=== PATIENT | female | born 1950 | race Caucasian/White ===

== ENCOUNTER 2018-12-01 11:37 | Outpatient (CLI) | payer MEDICARE ==
[~2018-12-01 11:37] MED LIST: Iopamidol 370 76% 100 ML VIAL ONE
[2018-12-01 12:52] LABS: Estimated GFR-MDRD - POC Greater than 90
--- NOTE | 2018-12-01 13:23 | CT ---
CT abdomen with and without contrast CT pelvis with and without contrast: (CT urogram) 12/01/2018 HISTORY: 68-year-old female with microhematuria COMPARISON: None TECHNIQUE: Precontrast scan, nephrographic/venous phase scan, and pyelographic/excretory phase scan, of entire a bdomen and pelvis. FINDINGS: Laparoscopic gastric band around the gastric cardia. Spleen is significantly enlarged. Liver has nodular margins. Small amount of free fluid around the right lobe of the liver. Moderate splenic varices. No portal vein thrombosis. No pleural effusion. There are multiple bilateral renal calculi. Right: At least 2. The larger one is 9 x 7 mm at lower pole calyx. There is a smaller one at mid pole . Left: 15 x 10 mm calculus within the left renal pelvis. Fat stranding representing edema around the l eft renal pelvis. Multiple other calculi at left renal upper, mid, and lower poles. No dilation of the renal calyces bilaterally. No calculus or dilation of ureters. No calculus in blad mauricio. Normal, thin diaz of the urinary bladder. Pelvic relaxation. Bilateral nephrograms are symmetrical, with no evidence of pyelonephritis. No moderate sized or large renal cystic lesion or solid tumor identified. No abdominal aortic aneurysm. No small bowel dilation. Redundant colon, especially sigmoid colon. No free fluid within the dependent portion of pelvic cavity. There is a small amount of free fluid at the right pelvic inlet. No major pathology of pancreas and adrenals. IMPRESSION: 1. Cirrhosis, 2. Signs of portal venous hypertension: Splenomegaly and splenic varices. 3. Nephrolithiasis with multiple bilateral renal calculi, left greater than right. 4. Edema around the left renal pelvis surrounding a moderately large calculus within the left renal p debora. 5. No hydronephrosis. 6. Status post laparoscopic gastric band bariatric surgery
== END 2018-12-01 11:38 | disposition home or self-care (01) ==
LOC: BICCT 11:37
PROVIDERS: ATTEND Urology
DX: R31.29 Other microscopic hematuria (principal); K74.60 Unspecified cirrhosis of liver; I86.8 Varicose veins of other specified sites; R16.1 Splenomegaly, not elsewhere classified; R60.0 Localized edema; K76.6 Portal hypertension; N20.0 Calculus of kidney; Z98.890 Other specified postprocedural states
CPT/HCPCS: 74178; 82565; Q9967

== ENCOUNTER 2019-02-26 05:34 | Day surgery (SDC) | payer MEDICARE ==
[2019-02-18 08:29] VITALS: BMI 35.6
[2019-02-26] MEDS ORDERED: Fentanyl 100 MCG/2 ML VIAL ONE (06:47)
[2019-02-26] MEDS ORDERED: Iothalamate Meglumine 60% 50 ML VIAL FS ONE (06:51)
[2019-02-26] MEDS ORDERED: Levofloxacin 500 mg/D5W 100 ml Premix Bag ONE (06:59)
[2019-02-26] MEDS ORDERED: Hyoscyamine Sulfate SL 0.125 mg Tablet ONE (08:56)
[2019-02-26] MEDS ORDERED: Promethazine HCl 25 MG/ML VIAL ONE (10:12)
--- NOTE | 2019-02-26 12:43 | OP ---
DATE OF PROCEDURE: 02/26/2019 SERVICE: Urology. PREOPERATIVE DIAGNOSIS: Bilateral renal stones. POSTOPERATIVE DIAGNOSIS: Bilateral renal stones. PROCEDURES PERFORMED: Left ureteroscopy, laser lithotripsy, basket extraction of stones, and placement of a 6 x 24 double-J stent. INDICATIONS FOR PROCEDURE: Ms. Brownlee is a 69-year-old white female, who presented to pr for microhematuria workup. It was found that she had large bilateral stones. The worst stone burden is on the left. We elected to start on the left side as she is mildly symptomatic on this side. Risks and benefits of surgery were discussed, and she has agreed to proceed forward. DESCRIPTION OF PROCEDURE: After identification of armband and verification of consent, the patient was brought back to the operating room, where she underwent general anesthesia with endotracheal intubation. She was then placed in a dorsal lithotomy position, prepped and draped in usual sterile fashion. After appropriate time-out, a lubricated 22-Malian rigid cystoscope was introduced per urethra into the bladder and attention was turned to left ureteral orifice. This was cannulated with a 0.035 Sensor wire up to the level of the renal pelvis. The stone was radiopaque on fluoroscopy. The cystoscope was then removed, and a dual-lumen catheter was advanced over the Sensor wire up to the level of the proximal ureter. An Amplatz Super Stiff wire was then passed to the second lumen up to the level of renal pelvis. The dual-lumen was then removed, and an 11/13-Malian x 36 cm ureteral access sheath was advanced up the superstiff wire to the level of the UPJ. The inner cannula and the Super Stiff wire were then removed leaving the outer sheath in place and the Sensor wire in place as a safety wire. A flexible digital ureteroscope was then passed through the ureteral access sheath into the renal pelvis. The large renal pelvis stone was immediately apparent, measuring approximately 15 mm in longest dimension. A 273 micron ball-tip laser fiber was used to fragment the stone into small pieces. An additional large stone was found in the upper pole and a medium-size stone found in the lower pole of the kidney, which were also fragmented. The 1.9-Malian ZeroTip Nitinol basket was then used to remove all pieces that were over 1 to 2 mm in size. Upon completion, all fragments had been removed except those there were approximately about a millimeter maybe at the most 2 mm in long dimension. The vast majorities were able to be removed, but due to a significant amount of debris within the kidney at this point, it was difficult to see. As such, we opted to leave the remaining stones as they were extremely small and should pass without much difficulty. Pull-back ureteroscopy was employed. No additional stones were found within the ureter. The cystoscope was then backloaded over the Sensor wire back into the bladder, and a 6 x 24 double-J stent was advanced over the Sensor wire up into the kidney. The wire was then removed leaving a good curl in the kidney and the bladder. The bladder was then emptied. The cystoscope was removed. The patient was awakened, taken to PACU for recovery in stable condition. COMPLICATIONS: None. ESTIMATED BLOOD LOSS: Minimal. RETAINED TUBES AND DRAINS: 6 x 24 double-J stent on the left. SPECIMEN: Stone for stone analysis. DISPOSITION: The patient will be discharged home and follow up with me in approximately 1 week for cysto stent removal. We will then plan for ureteroscopy on the other side at a future date and consider metabolic workup in the interim. Job ID: [id number]
[2019-03-04 13:11] LABS: CA Oxalate Monohydrate 75 % (.); CA Phosphate 25 % (.); Color Brown (.); Comment Note: (.); Stone Weight 556.9 mg (.)
== END 2019-02-26 13:29 | disposition home or self-care (01) ==
LOC: SDC 05:34
PROVIDERS: ATTEND Urology
PROC: 0TF48ZZ Fragmentation in Left Kidney Pelvis, Via Natural or Artificial Opening Endoscopic (ICD-10-PCS; principal; 2019-02-26)
PROC: 0T778DZ Dilation of Left Ureter with Intraluminal Device, Via Natural or Artificial Opening Endoscopic (ICD-10-PCS; 2019-02-26)
DX: N20.0 Calculus of kidney (principal); M79.7 Fibromyalgia; I11.9 Hypertensive heart disease without heart failure; Z79.899 Other long term (current) drug therapy; Z88.1 Allergy status to other antibiotic agents; Z88.6 Allergy status to analgesic agent
CPT/HCPCS: 52356; 74420; 82365; 88300; C1769; J1956; J2550; J3010

== ENCOUNTER 2019-04-10 11:33 | Outpatient (CLI) | payer MEDICARE ==
[2019-04-10 12:38] LABS: Hemoglobin 13.2 g/dL (12.0-16.0); Mean Corpuscular HGB CONC 34.2 g/dL (32.0-36.0); Mean Corpuscular Hemoglobin 32.2 pg (27.0-31.0); Mean Platelet Volume 7.6 fL (7.4-10.4); Platelet Count 106 thou/uL (130-400); RBC Distribution Width 12.5 % (11.5-14.5); Red Blood Cell (RBC) Count 4.11 mill/uL (4.20-5.40); White Blood Cell (WBC) Count 4.5 thou/uL (4.8-10.8)
[2019-04-10 12:42] LABS: INR-International Normal Ratio 1.3; PTT 36.1 SEC (22.9-36.1); Prothrombin Time 15.8 SEC (12.0-14.7)
[2019-04-10 12:48] LABS: Bilirubin Negative (Negative); Blood, Urine Negative (Negative); Calcium Oxalate Crystals 4+ HPF (None Seen); Clarity Turbid (Clear); Glucose, Urine (Dipstick) Normal (Negative); Leukocyte Negative Leu/uL (Negative); Nitrite Negative (Negative); Protein, Urine (Dipstick) Negative (Neg-Trace); Squamous Epithelial 0-3 HPF (0-3)
[2019-04-10 12:49] LABS: Bacteria/HPF 1+ HPF (None Seen)
[2019-04-10 12:57] LABS: RBC/HPF None Seen HPF (0-3); WBC/HPF 0-3 HPF (0-3)
[2019-04-10 12:59] LABS: Anion Gap 11 mmol/L (10-20); BUN (Urea Nitrogen) 8 mg/dL (9.8-20.1); Calc. Creatinine Clearance 0 mL/min (70-130); Calcium 9.3 mg/dL (7.8-10.44); Carbon Dioxide 28 mmol/L (23-31); Chloride 103 mmol/L (98-107); Estimated GFR-MDRD 67; Glucose 91 mg/dL (83-110); Potassium 4.3 mmol/L (3.5-5.1); Sodium 138 mmol/L (136-145)
== END 2019-04-10 11:34 | disposition home or self-care (01) ==
LOC: LABBT 11:33
PROVIDERS: ATTEND Urology
DX: Z01.818 Encounter for other preprocedural examination (principal); N20.0 Calculus of kidney; R31.29 Other microscopic hematuria; N39.0 Urinary tract infection, site not specified
CPT/HCPCS: 80048; 81001; 85027; 85610; 85730; 87086; 93005; 93010

== ENCOUNTER 2019-04-16 06:57 | Day surgery (SDC) | payer MEDICARE ==
[2019-04-10 11:49] VITALS: BMI 35.3
[2019-04-16] MEDS ORDERED: Levofloxacin 500 mg/D5W 100 ml Premix Bag ONE (09:16)
[2019-04-16] MEDS ORDERED: B & O ONE (09:39)
[2019-04-16] MEDS ORDERED: Fentanyl 100 MCG/2 ML VIAL ONE (10:13)
--- NOTE | 2019-04-16 12:55 | OP ---
DATE OF PROCEDURE: 04/16/2019 SERVICE: Urology. PREOPERATIVE DIAGNOSIS: Right renal stone. POSTOPERATIVE DIAGNOSIS: Right renal stone. PROCEDURES PERFORMED: Right ureteroscopy, laser lithotripsy, basket extraction of stone, and placement of a 6 x 28 double-J stent. INDICATION FOR PROCEDURE: Ms. Brownlee is a 69-year-old white female, who had recurrent urinary tract infections and imaging demonstrating bilateral renal stones. She has already had a ureteroscopy and clearance of stone on the left side, but still has an approximately 9 x 7 stone on the right with an additional stone. We elected for ureteroscopy to remove the stones to try and lower her risk of urinary tract infections as well as clear her stone disease. Risks and benefits have been discussed and she has agreed to proceed forward. DESCRIPTION OF PROCEDURE: After identification of armband and verification of consent, the patient was brought back to the operating room, where she underwent general anesthesia with endotracheal intubation. She was then placed in dorsal lithotomy position and prepped and draped in usual sterile fashion. After appropriate time-out, a lubricated 22-Tamazight rigid cystoscope was introduced per urethra into the bladder. Of note, the patient does have approximately a grade 3 anterior prolapse. Attention was turned to the right ureteral orifice, which was cannulated with a 0.035 Sensor wire up to the level of renal pelvis. The stones were visible fluoroscopically. The cystoscope was removed and a dual-lumen catheter was advanced over the Sensor wire up to the level of proximal ureter. An Amplatz Super-Stiff wire was the and placed to the second lumen up to the level of the renal pelvis. The dual lumen was removed. An 11/13 x 36 cm ureteral access sheath was advanced up the Super-Stiff wire up to the level of the proximal ureter, and the inner cannula and Super-Stiff wire were removed leaving the outer sheath and Sensor wire in place as a safety wire. A flexible digital ureteroscope was then passed through the ureteral access sheath up to the level of renal pelvis. Full pyeloscopy demonstrated a large stone in the lower pole and a medium size stone in the middle pole. Using the 1.9-Tamazight Zero Tip Nitinol basket, the lower pole of stone was repositioned to the upper pole for easier fragmentation. The basket was then removed and a 273 micron ball-tip fiber was used to come in and break up both stones into small pieces. The Nitinol basket was then brought back in and all pieces greater than 1 mm were removed. Upon completion, there were no stone fragments over a millimeter in size. They all appeared extremely small and they should be able to pass on their own. Full pyeloscopy was performed and no additional stones were seen. Satisfied with fragmentation and near complete stone removal, pull-back ureteroscopy was employed, no additional stones were found within the ureter. The cystoscope was then backloaded over the Sensor wire back into the bladder and a 6 x 24 double-J stent was advanced over the Sensor wire up to the level of renal pelvis. The wire was removed leaving partial curl in the bladder and a poor curl in the kidney, indicating that the stent was probably too short. The stent was brought out to the level of the urethral meatus using flexible graspers and the Sensor wire was advanced through the ureteral stent up to the level of renal pelvis. The stent was then removed and discarded and a 6 x 28 double-J stent was brought in over the Sensor wire and advanced fluoroscopically into position with the wire removed, leaving a good curl in the kidney and a good curl in the bladder. Satisfied with the new stent, the bladder was drained and cystoscope removed. B and O suppositories placed in the patient's rectum. The patient was then awakened and taken to PACU for recovery in stable condition. COMPLICATIONS: None. ESTIMATED BLOOD LOSS: Minimal. RETAINED TUBES AND DRAINS: A 6 x 28 double-J stent on the right. SPECIMEN: Stone for stone analysis. DISPOSITION: The patient will be discharged home and follow up with me in 1 week for cysto stent removal. Job ID: [id number]
[2019-04-16] MEDS ORDERED: HYDROcodone/Acetaminophen 5/325 mg Tablet ONE (13:07)
== END 2019-04-16 13:50 | disposition home or self-care (01) ==
LOC: SDC 06:57
PROVIDERS: ATTEND Urology
PROC: 0TC08ZZ Extirpation of Matter from Right Kidney, Via Natural or Artificial Opening Endoscopic (ICD-10-PCS; principal; 2019-04-16)
PROC: 0T768DZ Dilation of Right Ureter with Intraluminal Device, Via Natural or Artificial Opening Endoscopic (ICD-10-PCS; 2019-04-16)
DX: N20.0 Calculus of kidney (principal); Z79.82 Long term (current) use of aspirin; Z79.891 Long term (current) use of opiate analgesic; Z79.899 Other long term (current) drug therapy; Z87.440 Personal history of urinary (tract) infections; Z88.1 Allergy status to other antibiotic agents; Z88.6 Allergy status to analgesic agent
CPT/HCPCS: 52356; 76000; 82365; 88300; C1769; J1956; J3010

== ENCOUNTER 2019-06-26 09:27 | Outpatient (CLI) | payer MEDICARE ==
--- NOTE | 2019-06-26 10:14 | ULT ---
Exam: Bilateral renal ultrasound HISTORY: Nephrolithiasis COMPARISON: None FINDINGS: Right kidney: Normal cortical echotexture. 0.8 cm echogenic focus in the right renal pelvis. Mild hyd ronephrosis. Right kidney measurements: 9.6 x 6.0 x 5 point cm. Left kidney: Normal cortical echotexture. No hydronephrosis Left kidney measurements 10.0 x 4.9 x 5.4 cm. Urinary bladder: Normal mucosa. IMPRESSION: 1. Mild hydronephrosis, right-sided. No significant change pre and post voiding. 2. Right renal pelvic calculus.
== END 2019-06-26 09:28 | disposition home or self-care (01) ==
LOC: BICULT 09:27
PROVIDERS: ATTEND Urology
DX: N20.0 Calculus of kidney (principal); N13.30 Unspecified hydronephrosis
CPT/HCPCS: 76770

== ENCOUNTER 2020-12-08 12:33 | Outpatient (CLI) | payer MEDICARE | END 2020-12-08 12:34 | disposition home or self-care (01) | LOC: BICCT 12:33 | PROVIDERS: ATTEND Urology | DX: R31.29 Other microscopic hematuria (principal); N13.2 Hydronephrosis with renal and ureteral calculous obstruction; K74.60 Unspecified cirrhosis of liver; R16.1 Splenomegaly, not elsewhere classified; I86.4 Gastric varices; M79.89 Other specified soft tissue disorders; R18.8 Other ascites | CPT/HCPCS: 74178; 82565 ==

== ENCOUNTER 2020-12-19 11:10 | Outpatient (CLI) | payer MEDICARE ==
[2020-12-19 14:48] LABS: Bilirubin 1+ (Negative); Blood, Urine 250 (Negative); Clarity Slightly Cloudy (Clear); Glucose, Urine (Dipstick) Normal (Negative); Ketone, Urine 5 mg/dL (Negative); Leukocyte 100 (Negative); Nitrite Positive (Negative); Protein, Urine (Dipstick) 100 mg/dl (Neg-Trace)
[2020-12-19 14:53] LABS: Hemoglobin 12.2 g/dL (12.0-15.5); Mean Corpuscular HGB CONC 33.1 g/dL (32.0-36.0); Mean Corpuscular Hemoglobin 31.2 pg (27.0-33.0); Mean Corpuscular Volume 94.4 fl (81.6-98.3); Mean Platelet Volume 10.7 fl (7.4-10.4); Platelet Count 137 10x3/uL (150-450); RBC Distribution Width 14.3 % (11.5-14.5); Red Blood Cell (RBC) Count 3.91 10x6/uL (3.90-5.03); White Blood Cell (WBC) Count 5.4 10x3/uL (3.5-10.5)
[2020-12-19 15:12] LABS: RBC/HPF 21-50 HPF (0-3); Squamous Epithelial 0-3 HPF (0-3); Transitional Epithelial 0-3 HPF (None Seen)
[2020-12-19 15:13] LABS: Bacteria/HPF Rare-Few HPF (None Seen); Mucous/LPF Few LPF (<2+)
[2020-12-19 15:15] LABS: Anion Gap 10 mmol/L (10-20); BUN (Urea Nitrogen) 8 mg/dL (9.8-20.1); Calc. Creatinine Clearance 0 mL/min (70-130); Calcium 8.4 mg/dL (7.8-10.44); Carbon Dioxide 33 mmol/L (23-31); Chloride 101 mmol/L (98-107); Glucose 97 mg/dL (83-110); INR-International Normal Ratio 1.2; PTT 31.1 sec (22.0-33.0); Potassium 3.4 mmol/L (3.5-5.1); Prothrombin Time 13.3 sec (9.5-12.1); Sodium 141 mmol/L (136-145)
== END 2020-12-19 11:11 | disposition home or self-care (01) ==
LOC: LABBT 11:10
PROVIDERS: ATTEND Urology
DX: Z01.818 Encounter for other preprocedural examination (principal)
CPT/HCPCS: 80048; 81001; 85027; 85610; 85730; 87086; 93005; 93010

== ENCOUNTER 2020-12-22 08:51 | Day surgery (SDC) | payer MEDICARE ==
[2020-12-21 12:12] VITALS: BMI 35.7
[2020-12-22] MEDS ORDERED: Levofloxacin 500 mg/D5W 100 ml Premix Bag ONE (09:12)
[2020-12-22] MEDS ORDERED: Iothalamate Meglumine 60% 50 ML VIAL FS ONE (11:24)
[2020-12-22] MEDS ORDERED: B & O ONE (11:24)
[2020-12-22] MEDS ORDERED: Fentanyl 100 MCG/2 ML VIAL ONE (11:31)
[2020-12-22] MEDS ORDERED: Famotidine/PF 20 mg/2ml Vial ONE (11:32)
[2020-12-22] MEDS ORDERED: PROPOFOL 200 MG/20 ML VIAL ONE (11:52)
[2020-12-22] MEDS ORDERED: Rocuronium Bromide 10 MG/ML (10ML VIAL) ONE (11:52)
[2020-12-22] MEDS ORDERED: Ondansetron PF 4 MG/2 ML Vial ONE (11:52)
[2020-12-22] MEDS ORDERED: Metoclopramide HCl 10 MG/2 ML VIAL ONE (11:52)
[2020-12-22] MEDS ORDERED: ePHEDrine Sulfate 50 MG/10 ML VIAL ONE (11:52)
[2020-12-22] MEDS ORDERED: PHENYLEPHRINE-NS 100 MCG/ML 10 ML SYRINGE ONE (11:52)
[2020-12-22] MEDS ORDERED: Lidocaine 1% PF 5 ML VIAL ONE (11:52)
[2020-12-22] MEDS ORDERED: SUGAMMADEX SODIUM 200 MG/2 ML VIAL ONE (13:47)
== END 2020-12-22 14:55 | disposition home or self-care (01) ==
LOC: SDC 08:51
PROVIDERS: ATTEND Urology
PROC: 0TC48ZZ Extirpation of Matter from Left Kidney Pelvis, Via Natural or Artificial Opening Endoscopic (ICD-10-PCS; principal; 2020-12-22)
PROC: 0TC68ZZ Extirpation of Matter from Right Ureter, Via Natural or Artificial Opening Endoscopic (ICD-10-PCS; 2020-12-22)
PROC: 0TC38ZZ Extirpation of Matter from Right Kidney Pelvis, Via Natural or Artificial Opening Endoscopic (ICD-10-PCS; 2020-12-22)
PROC: 0T768DZ Dilation of Right Ureter with Intraluminal Device, Via Natural or Artificial Opening Endoscopic (ICD-10-PCS; 2020-12-22)
DX: N20.2 Calculus of kidney with calculus of ureter (principal); N39.0 Urinary tract infection, site not specified; K75.81 Nonalcoholic steatohepatitis (NASH); M79.7 Fibromyalgia; I10 Essential (primary) hypertension; E66.01 Morbid (severe) obesity due to excess calories; Z68.35 Body mass index [BMI] 35.0-35.9, adult; Z79.82 Long term (current) use of aspirin; Z79.899 Other long term (current) drug therapy; Z87.891 Personal history of nicotine dependence
CPT/HCPCS: 52356; 74420; 82365; 88300; C2617; J1956; J2405; J2704; J2765; J3010; Q9961; S0028

== ENCOUNTER 2021-06-29 10:34 | Outpatient (CLI) | payer MEDICARE | END 2021-06-29 10:35 | disposition home or self-care (01) | LOC: BICULT 10:34 | PROVIDERS: ATTEND Urology | DX: N20.0 Calculus of kidney (principal) | CPT/HCPCS: 76770 ==

== ENCOUNTER 2021-11-18 22:48 | Inpatient (IN) | payer MEDICARE ==
[2021-11-18 23:30] VITALS: BMI 31.3
[2021-11-18] MEDS ORDERED: Propranolol HCl 20 MG TAB PO SCH (23:45)
[2021-11-18] MEDS ORDERED: Piperacillin/Tazobactam 3.375 GM in Sodium Chloride 0.9% 100 ML IVPB SCH (23:45)
[2021-11-18] MEDS ORDERED: Propranolol 60 MG TAB PO SCH (23:45)
[2021-11-19] MEDS: Vancomycin 1 GM in Premix Bag 1 BAG IVPB SCH ×2 (00:25→12:25)
[2021-11-19] MEDS ORDERED: oxyCODONE 5 MG TAB PO SCH ×2 (04:00→09:00)
[2021-11-19] MEDS: Levothyroxine Sodium 25 MCG TAB PO SCH (05:59)
[2021-11-19] MEDS: Piperacillin/Tazobactam 3.375 GM in Sodium Chloride 0.9% 100 ML IVPB SCH ×3 (05:59→21:14)
[2021-11-19 06:39] LABS: Anion Gap 11 mmol/L (10-20); BUN (Urea Nitrogen) 10 mg/dL (9.8-20.1); Calc. Creatinine Clearance 114 mL/min (70-130); Calcium 8.8 mg/dL (7.8-10.44); Carbon Dioxide 27 mmol/L (23-31); Chloride 105 mmol/L (98-107); Glucose 89 mg/dL (83-110); Potassium 3.9 mmol/L (3.5-5.1); Sodium 139 mmol/L (136-145)
[2021-11-19 06:53] LABS: #Eosinphils 0.1 thou/uL (0.0-0.7); #Lymphocytes 0.8 thou/uL (1.20-3.40); #Monocytes 0.3 thou/uL (0.11-0.59); #Neutrophils 1.4 thou/uL (1.40-6.50); %Basophils 0.7 % (0.0-1.0); %Eosinophils 3.6 % (0.0-10.0); %Lymphocytes 30.1 % (21.0-51.0); %Monocytes 12.8 % (0.0-10.0); %Neutrophils 52.9 % (42.0-75.0); Mean Corpuscular HGB CONC 33.1 g/dL (32.0-36.0); Mean Corpuscular Hemoglobin 32.6 pg (27.0-31.0); Mean Corpuscular Volume 98.6 fL (78.0-98.0); Mean Platelet Volume 7.4 fL (7.4-10.4); Platelet Count 83 thou/uL (130-400); Platelet Morphology Comment Appears Decreased; RBC Distribution Width 13.4 % (11.5-14.5); Red Blood Cell (RBC) Count 3.37 mill/uL (4.20-5.40); White Blood Cell (WBC) Count 2.7 thou/uL (4.8-10.8)
[2021-11-19] MEDS: Hydrochlorothiazide 25 MG TAB PO SCH (08:22)
[2021-11-19] MEDS: Potassium Chloride 10 MEQ TAB PO SCH (08:23)
[2021-11-19] MEDS: Ezetimibe 10 MG TAB PO SCH (08:23)
[2021-11-19] MEDS: Cholecalciferol 1,000 UNITS (25 MCG) TAB PO SCH (08:23)
[2021-11-19] MEDS ORDERED: Propranolol 60 MG TAB PO SCH ×2 (09:00→21:00)
[2021-11-19] MEDS ORDERED: Iopamidol 0 ML ONE ×2 (12:35→12:36)
[2021-11-19] MEDS: oxyCODONE 5 MG TAB PO SCH ×3 (12:42→23:18)
[2021-11-19] MEDS ORDERED: Fentanyl 100 MCG/2 ML VIAL ONE (12:46)
[2021-11-19] MEDS ORDERED: Piperacillin/Tazobactam 3.375 GM VIAL ONE (12:46)
[2021-11-19] MEDS ORDERED: Sodium Chloride 0.9% 100 ML ONE (12:47)
[2021-11-19] MEDS ORDERED: PROPOFOL 200 MG/20 ML VIAL ONE (12:47)
[2021-11-19] MEDS ORDERED: Ondansetron PF 4 MG/2 ML Vial ONE (12:47)
[2021-11-19] MEDS ORDERED: Phenazopyridine HCl 100 MG TAB PO PRN (13:20)
[2021-11-19] MEDS: Sodium Chloride 0.9% 1,000 ML IV SCH (17:06)
[2021-11-19] MEDS: Trospium 20 MG TAB PO SCH (21:13)
[2021-11-19] MEDS: Propranolol HCl 20 MG TAB PO SCH (21:13)
[2021-11-19] MEDS: Docusate 100 MG CAP PO SCH (21:14)
[2021-11-19 23:40] LABS: Vancomycin, Trough 3.8 ug/mL
[2021-11-19] MEDS ORDERED: Propranolol HCl 20 MG TAB PO SCH (23:59)
[2021-11-20] MEDS: Vancomycin 1 GM in Premix Bag 1 BAG IVPB SCH ×2 (01:26→11:58)
[2021-11-20] MEDS: Piperacillin/Tazobactam 3.375 GM in Sodium Chloride 0.9% 100 ML IVPB SCH ×3 (05:19→20:47)
[2021-11-20] MEDS: oxyCODONE 5 MG TAB PO SCH ×3 (05:19→17:12)
[2021-11-20] MEDS: Levothyroxine Sodium 25 MCG TAB PO SCH (05:19)
[2021-11-20] MEDS: Sodium Chloride 0.9% 1,000 ML IV SCH ×2 (05:20→08:52)
[2021-11-20] MEDS: Trospium 20 MG TAB PO SCH ×2 (08:48→20:45)
[2021-11-20] MEDS: pyridOXINE 50 MG (B6) TAB PO SCH (08:48)
[2021-11-20] MEDS: Rifaximin 550 MG TAB PO SCH ×2 (08:48→20:45)
[2021-11-20] MEDS: Potassium Chloride 10 MEQ TAB PO SCH (08:48)
[2021-11-20] MEDS: Docusate 100 MG CAP PO SCH ×2 (08:48→20:45)
[2021-11-20] MEDS: Ezetimibe 10 MG TAB PO SCH (08:48)
[2021-11-20] MEDS: Hydrochlorothiazide 25 MG TAB PO SCH (08:49)
[2021-11-20] MEDS: Cholecalciferol 1,000 UNITS (25 MCG) TAB PO SCH (08:49)
[2021-11-20] MEDS ORDERED: [UNRECOGNIZED DRUG - OTHER] PO SCH (09:00)
[2021-11-20] MEDS ORDERED: BETA CAROTENE PO SCH (09:00)
[2021-11-20] MEDS ORDERED: PROPRANOLOL HCL 160 MG PO SCH (09:00)
[2021-11-20 09:12] LABS: #Eosinphils 0.2 thou/uL (0.0-0.7); #Lymphocytes 0.9 thou/uL (1.20-3.40); #Monocytes 0.4 thou/uL (0.11-0.59); #Neutrophils 3.3 thou/uL (1.40-6.50); %Basophils 0.7 % (0.0-1.0); %Eosinophils 3.5 % (0.0-10.0); %Lymphocytes 18.6 % (21.0-51.0); %Monocytes 9.1 % (0.0-10.0); Hemoglobin 12.7 g/dL (12.0-16.0); Mean Corpuscular HGB CONC 33.2 g/dL (32.0-36.0); Mean Corpuscular Volume 99.2 fL (78.0-98.0); Mean Platelet Volume 7.3 fL (7.4-10.4); Platelet Count 93 thou/uL (130-400); RBC Distribution Width 13.3 % (11.5-14.5); Red Blood Cell (RBC) Count 3.85 mill/uL (4.20-5.40); White Blood Cell (WBC) Count 4.8 thou/uL (4.8-10.8)
[2021-11-20 09:24] LABS: Anion Gap 12 mmol/L (10-20); BUN (Urea Nitrogen) 9 mg/dL (9.8-20.1); Calc. Creatinine Clearance 96 mL/min (70-130); Calcium 8.7 mg/dL (7.8-10.44); Carbon Dioxide 25 mmol/L (23-31); Chloride 102 mmol/L (98-107); Glucose 132 mg/dL (83-110); Potassium 3.6 mmol/L (3.5-5.1); Sodium 135 mmol/L (136-145)
[2021-11-20] MEDS: Propranolol HCl 20 MG TAB PO SCH (20:45)
[2021-11-21] MEDS: oxyCODONE 5 MG TAB PO SCH ×3 (00:25→12:31)
[2021-11-21] MEDS: Vancomycin 1 GM in Premix Bag 1 BAG IVPB SCH ×2 (00:26→12:31)
[2021-11-21] MEDS: Piperacillin/Tazobactam 3.375 GM in Sodium Chloride 0.9% 100 ML IVPB SCH (06:29)
[2021-11-21] MEDS: Levothyroxine Sodium 25 MCG TAB PO SCH (06:30)
[2021-11-21 07:04] LABS: #Basophils 0.1 thou/uL (0.0-0.2); #Eosinphils 0.2 thou/uL (0.0-0.7); #Lymphocytes 1.3 thou/uL (1.20-3.40); #Monocytes 0.5 thou/uL (0.11-0.59); #Neutrophils 2.6 thou/uL (1.40-6.50); %Basophils 1.1 % (0.0-1.0); %Eosinophils 5.3 % (0.0-10.0); %Lymphocytes 27.3 % (21.0-51.0); %Monocytes 10.9 % (0.0-10.0); %Neutrophils 55.4 % (42.0-75.0); Hemoglobin 12.8 g/dL (12.0-16.0); Mean Corpuscular Hemoglobin 33.4 pg (27.0-31.0); Mean Corpuscular Volume 98.3 fL (78.0-98.0); Mean Platelet Volume 7.5 fL (7.4-10.4); Platelet Count 98 thou/uL (130-400); RBC Distribution Width 13.3 % (11.5-14.5); Red Blood Cell (RBC) Count 3.83 mill/uL (4.20-5.40); White Blood Cell (WBC) Count 4.6 thou/uL (4.8-10.8)
[2021-11-21] MEDS: Potassium Chloride 10 MEQ TAB PO SCH (08:13)
[2021-11-21] MEDS: Trospium 20 MG TAB PO SCH (08:13)
[2021-11-21] MEDS: pyridOXINE 50 MG (B6) TAB PO SCH (08:13)
[2021-11-21] MEDS: Cholecalciferol 1,000 UNITS (25 MCG) TAB PO SCH (08:13)
[2021-11-21] MEDS: Rifaximin 550 MG TAB PO SCH (08:13)
[2021-11-21] MEDS: Ezetimibe 10 MG TAB PO SCH (08:13)
[2021-11-21] MEDS: Hydrochlorothiazide 25 MG TAB PO SCH (08:14)
[2021-11-21] MEDS: Docusate 100 MG CAP PO SCH (08:14)
[2021-11-21 11:15] LABS: Vancomycin, Trough 15.2 ug/mL
[2021-11-21 16:43] VITALS: BP 110/67; TEMP 97.7
== END 2021-11-21 16:40 | disposition home or self-care (01) | DRG 659 ==
LOC: SURG A 23:05 → INTOOBSV 23:05 → OBSVTOIN 11-20 12:23
PROVIDERS: ADMIT Family Medicine; ATTEND Family Medicine
PROC: 0T778DZ Dilation of Left Ureter with Intraluminal Device, Via Natural or Artificial Opening Endoscopic (ICD-10-PCS; principal; 2021-11-19)
PROC: BT1FZZZ Fluoroscopy of Left Kidney, Ureter and Bladder (ICD-10-PCS; 2021-11-19)
DX: N20.0 Calculus of kidney (principal); G93.41 Metabolic encephalopathy; D61.818 Other pancytopenia; Z20.822 Contact with and (suspected) exposure to COVID-19; G89.4 Chronic pain syndrome; M79.7 Fibromyalgia; E03.9 Hypothyroidism, unspecified; I10 Essential (primary) hypertension; E66.01 Morbid (severe) obesity due to excess calories; E55.9 Vitamin D deficiency, unspecified; D69.6 Thrombocytopenia, unspecified; I25.10 Atherosclerotic heart disease of native coronary artery without angina pectoris; K75.81 Nonalcoholic steatohepatitis (NASH); Z87.442 Personal history of urinary calculi; Z88.1 Allergy status to other antibiotic agents; Z79.890 Hormone replacement therapy; Z79.82 Long term (current) use of aspirin; Z79.899 Other long term (current) drug therapy; Z87.440 Personal history of urinary (tract) infections; Z95.5 Presence of coronary angioplasty implant and graft; Z98.42 Cataract extraction status, left eye; Z98.41 Cataract extraction status, right eye; Z98.84 Bariatric surgery status; Z90.710 Acquired absence of both cervix and uterus; Z80.9 Family history of malignant neoplasm, unspecified; Z82.49 Family history of ischemic heart disease and other diseases of the circulatory system; Z68.31 Body mass index [BMI] 31.0-31.9, adult; Z87.891 Personal history of nicotine dependence
CPT/HCPCS: 36415; 74420; 80048; 80202; 82607; 82746; 85025; 93005; 93010; 96365; 96366; 96367; 96376; C2617; G0378; J2405; J2543; J2704; J3010; J3370; J3490; J7050; Q9967

== ENCOUNTER 2021-11-25 16:36 | Observation (INO) | payer MEDICARE ==
[~2021-11-25 16:36] MED LIST changes: -Iopamidol 370 76% 100 ML VIAL ONE; +Iopamidol-370 76% 500 ML 1 ML ONE
[2021-11-25] MEDS ORDERED: Aspirin Chewable 81 MG TAB ONE (18:03)
[2021-11-25 18:49] LABS: Bacteria/HPF None Seen HPF (None Seen); Bilirubin Negative (Negative); Blood, Urine 3+ (Negative); Clarity Extra Turbid (Clear); Glucose, Urine (Dipstick) Normal (Negative); Ketone, Urine Negative (Negative); Leukocyte 500 Leu/uL (Negative); Nitrite Negative (Negative); Protein, Urine (Dipstick) 100 mg/dL (Neg-Trace); RBC/HPF Greater than 50 HPF (0-3); Specific Gravity, Urine 1.014 (1.002-1.036); Urobilinogen Normal mg/dL (Less than 2)
[2021-11-25 18:59] LABS: #Basophils 0.1 thou/uL (0.0-0.2); #Eosinphils 0.4 thou/uL (0.0-0.7); #Lymphocytes 1.6 thou/uL (1.20-3.40); #Monocytes 0.7 thou/uL (0.11-0.59); #Neutrophils 4.9 thou/uL (1.40-6.50); %Basophils 0.8 % (0.0-1.0); %Eosinophils 4.9 % (0.0-10.0); %Lymphocytes 20.7 % (21.0-51.0); %Monocytes 9.5 % (0.0-10.0); %Neutrophils 64.1 % (42.0-75.0); Hemoglobin 14.4 g/dL (12.0-16.0); Mean Corpuscular HGB CONC 33.9 g/dL (32.0-36.0); Mean Corpuscular Hemoglobin 32.6 pg (27.0-31.0); Mean Corpuscular Volume 96.2 fL (78.0-98.0); Mean Platelet Volume 7.4 fL (7.4-10.4); Platelet Count 156 thou/uL (130-400); RBC Distribution Width 13.5 % (11.5-14.5); Red Blood Cell (RBC) Count 4.41 mill/uL (4.20-5.40); White Blood Cell (WBC) Count 7.6 thou/uL (4.8-10.8)
[2021-11-25 19:21] LABS: ALT (SGPT) 19 U/L (8-55); AST (SGOT) 41 U/L (5-34); Albumin 3.4 g/dL (3.4-4.8); Alkaline Phosphatase 96 U/L (40-110); Anion Gap 14 mmol/L (10-20); BUN (Urea Nitrogen) 14 mg/dL (9.8-20.1); Bilirubin, Total 2.9 mg/dL (0.2-1.2); Calc. Creatinine Clearance 0 mL/min (70-130); Calcium 8.9 mg/dL (7.8-10.44); Carbon Dioxide 26 mmol/L (23-31); Chloride 97 mmol/L (98-107); Globulin 4.8 g/dL (2.4-3.5); Glucose 114 mg/dL (83-110); Lipase 13 U/L (8-78); Potassium 3.9 mmol/L (3.5-5.1); Protein, Total 8.2 g/dL (5.8-8.1); Sodium 133 mmol/L (136-145)
[2021-11-25] MEDS ORDERED: Ondansetron ODT 4 MG TAB SL PRN (21:30)
[2021-11-25] MEDS ORDERED: Ondansetron PF 4 MG/2 ML Vial IVP PRN (21:30)
[2021-11-25 22:19] LABS: Troponin I Less than 0.010 ng/mL (< 0.028)
[2021-11-25] MEDS ORDERED: Senokot S 8.6-50 MG TAB PO PRN (22:27)
[2021-11-25] MEDS ORDERED: Acetaminophen 325 MG TAB PO PRN (22:27)
[2021-11-25 22:57] VITALS: BMI 31.8
[2021-11-26] MEDS: oxyCODONE 5 MG TAB PO PRN ×2 (00:22→08:48)
[2021-11-26 01:23] LABS: Troponin I Less than 0.010 ng/mL (< 0.028)
[2021-11-26 05:51] LABS: Anion Gap 13 mmol/L (10-20); BUN (Urea Nitrogen) 15 mg/dL (9.8-20.1); Calc. Creatinine Clearance 101 mL/min (70-130); Calcium 8.7 mg/dL (7.8-10.44); Carbon Dioxide 26 mmol/L (23-31); Chloride 99 mmol/L (98-107); Glucose 93 mg/dL (83-110); Potassium 3.8 mmol/L (3.5-5.1); Sodium 134 mmol/L (136-145)
[2021-11-26 05:59] LABS: Band 4 % (5-11); Hemoglobin 12.2 g/dL (12.0-16.0); Lymphocytes 16 % (21-51); MDiff Complete? YES; Mean Corpuscular HGB CONC 35.4 g/dL (32.0-36.0); Mean Corpuscular Hemoglobin 33.9 pg (27.0-31.0); Mean Corpuscular Volume 95.9 fL (78.0-98.0); Mean Platelet Volume 7.8 fL (7.4-10.4); Monocytes 8 % (0-10); Neutrophil 72 % (42-75); Platelet Count 106 thou/uL (130-400); Platelet Morphology Comment Appears Decreased; RBC Distribution Width 13.6 % (11.5-14.5); RBC Morphology Normal; White Blood Cell (WBC) Count 4.7 thou/uL (4.8-10.8)
[2021-11-26] MEDS ORDERED: Levothyroxine Sodium 25 MCG TAB PO SCH ×2 (06:00→09:00)
[2021-11-26] MEDS ORDERED: Hydrochlorothiazide 25 MG TAB PO SCH (09:00)
[2021-11-26] MEDS ORDERED: Enoxaparin Sodium 40 MG/0.4 ML SYRINGE SC SCH ×2 (09:00→21:00)
[2021-11-26] MEDS ORDERED: VITAMIN A 2400 MCG PO SCH (09:00)
[2021-11-26] MEDS ORDERED: Cholecalciferol 1,000 UNITS (25 MCG) TAB PO SCH (09:00)
[2021-11-26] MEDS ORDERED: Propranolol HCl LA 80 MG CAP PO SCH (09:00)
[2021-11-26] MEDS ORDERED: Aspirin 81 mg Enteric Coated Tablet PO SCH (09:00)
[2021-11-26] MEDS ORDERED: Ezetimibe 10 MG TAB PO SCH (09:00)
[2021-11-26] MEDS ORDERED: MILK THISTLE 175 MG PO SCH (09:00)
[2021-11-26 12:14] VITALS: BP 125/57; TEMP 97.7
[2021-11-26 16:35] LABS: SARS-CoV-2 PCR by NAA Not Detected (NotDetected)
[2021-11-26] MEDS ORDERED: Propranolol 60 MG TAB PO SCH (21:00)
[2021-11-26] MEDS ORDERED: cefTRIAXone\\ROCEPHIN 1 GM in Sodium Chloride 0.9% 100 ML IVPB SCH (21:00)
== END 2021-11-26 13:50 | disposition home or self-care (01) ==
LOC: ERS 16:36 → 2SW 21:19
PROVIDERS: ADMIT Family Medicine; ATTEND Family Medicine
DX: R06.02 Shortness of breath (principal); R06.01 Orthopnea; I25.10 Atherosclerotic heart disease of native coronary artery without angina pectoris; K95.09 Other complications of gastric band procedure; R30.0 Dysuria; G89.4 Chronic pain syndrome; M79.7 Fibromyalgia; I10 Essential (primary) hypertension; N20.0 Calculus of kidney; E89.0 Postprocedural hypothyroidism; E87.1 Hypo-osmolality and hyponatremia; K75.81 Nonalcoholic steatohepatitis (NASH); K74.60 Unspecified cirrhosis of liver; I85.10 Secondary esophageal varices without bleeding; K76.6 Portal hypertension; E66.01 Morbid (severe) obesity due to excess calories; Z68.31 Body mass index [BMI] 31.0-31.9, adult; Z87.440 Personal history of urinary (tract) infections; Z87.891 Personal history of nicotine dependence; Z79.82 Long term (current) use of aspirin; Z79.890 Hormone replacement therapy; Z79.899 Other long term (current) drug therapy; Z88.1 Allergy status to other antibiotic agents; Z88.6 Allergy status to analgesic agent; Z20.822 Contact with and (suspected) exposure to COVID-19
CPT/HCPCS: 71045; 71275; 80048; 80053; 83690; 83880; 84484 ×3; 85025 ×2; 87086; 93005; 93306; 99285; U0003; U0005; 36415; 81003; 81015; G0378; Q9967

== ENCOUNTER 2022-02-19 12:10 | Outpatient (CLI) | payer MEDICARE | END 2022-02-19 12:11 | disposition home or self-care (01) | LOC: LABBT 12:10 | PROVIDERS: ATTEND Urology | DX: Z01.810 Encounter for preprocedural cardiovascular examination (principal); N20.0 Calculus of kidney | CPT/HCPCS: 93005; 93010 ==

== ENCOUNTER 2022-02-22 08:18 | Day surgery (SDC) | payer MEDICARE ==
[2022-02-19 13:27] LABS: Hemoglobin 9.9 g/dL (12.0-15.5); Mean Corpuscular HGB CONC 32.2 g/dL (32.0-36.0); Mean Corpuscular Hemoglobin 29.3 pg (27.0-33.0); Mean Corpuscular Volume 90.8 fl (81.6-98.3); Platelet Count 126 10x3/uL (150-450); RBC Distribution Width 14.8 % (11.5-14.5); Red Blood Cell (RBC) Count 3.38 10x6/uL (3.90-5.03); White Blood Cell (WBC) Count 4.7 10x3/uL (3.5-10.5)
[2022-02-19 13:44] LABS: Anion Gap 12 mmol/L (10-20); BUN (Urea Nitrogen) 8 mg/dL (9.8-20.1); Bacteria/HPF 1+ HPF (None Seen); Bilirubin 1+ (Negative); Blood, Urine 250 (Negative); Calc. Creatinine Clearance 0 mL/min (70-130); Calcium 8.1 mg/dL (7.8-10.44); Carbon Dioxide 26 mmol/L (23-31); Chloride 101 mmol/L (98-107); Clarity Cloudy (Clear); Estimated GFR 83; Glucose 89 mg/dL (83-110); Glucose, Urine (Dipstick) Normal (Negative); INR-International Normal Ratio 1.3; Ketone, Urine Negative (Negative); Leukocyte 500 (Negative); Nitrite Positive (Negative); PTT 30.3 sec (22.0-33.0); Potassium 3.8 mmol/L (3.5-5.1); Protein, Urine (Dipstick) 500 mg/dl (Neg-Trace); RBC/HPF Greater than 50 HPF (0-3); Sodium 135 mmol/L (136-145)
[2022-02-20 12:29] VITALS: BMI 33.0
[2022-02-22] MEDS ORDERED: Gentamicin Sulfate 80 MG in Premix Bag 1 BAG IVPB SCH (09:45)
[2022-02-22] MEDS ORDERED: CEFAZOLIN 2 GM in Sodium Chloride 0.9% 100 ML IVPB SCH (09:45)
[2022-02-22] MEDS ORDERED: fentaNYL Citrate/PF 100 MCG/2 ML SYRINGE ONE (11:20)
[2022-02-22] MEDS ORDERED: Ioversol 68 % 50 ML VIAL ONE ×2 (11:34)
[2022-02-22] MEDS ORDERED: Sodium Chloride 0.9% 100 ML ONE (11:54)
[2022-02-22] MEDS ORDERED: CEFAZOLIN 2 GM VIAL ONE (11:54)
[2022-02-22] MEDS ORDERED: Phenylephrine 10 MG/ML VIAL ONE (12:02)
[2022-02-22] MEDS ORDERED: Neostigmine Methylsulfate 3 MG/3 ML SYRINGE ONE (12:02)
[2022-02-22] MEDS ORDERED: Ondansetron PF 4 MG/2 ML Vial ONE ×2 (12:02→14:25)
[2022-02-22] MEDS ORDERED: PROPOFOL 200 MG/20 ML VIAL ONE (12:02)
[2022-02-22] MEDS ORDERED: Lidocaine 1% PF 5 ML VIAL ONE (12:02)
[2022-02-22] MEDS ORDERED: Dexamethasone 20 MG/5 ML VIAL ONE (12:02)
[2022-02-22] MEDS ORDERED: Glycopyrrolate 0.2 MG/ML 5 ML SYRINGE ONE (12:02)
[2022-02-22] MEDS ORDERED: Esmolol 100 MG/10 ML VIAL ONE (12:02)
[2022-02-22] MEDS ORDERED: Rocuronium Bromide 10 MG/ML (10ML VIAL) ONE (12:02)
[2022-02-22] MEDS ORDERED: Bupivacaine/Epinephrine 0.25% 30 ML VIAL ONE (12:53)
[2022-02-22] MEDS ORDERED: Fentanyl 100 MCG/2 ML VIAL ONE (14:32)
== END 2022-02-22 16:43 | disposition home or self-care (01) ==
LOC: SDC 08:18
PROVIDERS: ATTEND Urology
PROC: 0TC13ZZ Extirpation of Matter from Left Kidney, Percutaneous Approach (ICD-10-PCS; principal; 2022-02-22)
DX: N20.0 Calculus of kidney (principal); E78.5 Hyperlipidemia, unspecified; I25.10 Atherosclerotic heart disease of native coronary artery without angina pectoris; Z79.82 Long term (current) use of aspirin; Z79.890 Hormone replacement therapy; Z79.899 Other long term (current) drug therapy; Z88.1 Allergy status to other antibiotic agents; Z88.6 Allergy status to analgesic agent; Z20.822 Contact with and (suspected) exposure to COVID-19
CPT/HCPCS: 74018; 76000; 80048; 81001; 82365; 85027; 85610; 85730; 86850; 86900; 86901; 87086; 87811; 88300; C1713; C1769; C2617; J0690; J1100; J1580; J2370; J2405; J2704; J3010; J3490; Q9967

== ENCOUNTER 2022-03-05 13:32 | Outpatient (CLI) | payer MEDICARE | END 2022-03-05 13:33 | disposition home or self-care (01) | LOC: BICCT 13:32 | PROVIDERS: ATTEND Urology | DX: N20.0 Calculus of kidney (principal); K74.60 Unspecified cirrhosis of liver; R16.1 Splenomegaly, not elsewhere classified; R18.8 Other ascites; Z96.0 Presence of urogenital implants; Z98.84 Bariatric surgery status | CPT/HCPCS: 74176 ==

== ENCOUNTER 2022-08-31 12:04 | Outpatient (CLI) | payer MEDICARE ==
[2022-08-31 14:13] LABS: #Eosinphils 0.1 10x3/uL (0.0-0.5); #Monocytes 0.5 10x3/uL (0.0-1.1); #Neutrophils 2.6 10x3/uL (1.5-8.4); %Basophils 0.5 % (0.0-2.0); %Eosinophils 3.5 % (0.0-6.0); %Lymphocytes 17.6 % (18.0-47.0); %Monocytes 13.1 % (0.0-10.0); Hemoglobin 9.5 g/dL (12.0-15.5); Mean Corpuscular HGB CONC 31.3 g/dL (32.0-36.0); Mean Corpuscular Hemoglobin 28.6 pg (27.0-33.0); Mean Corpuscular Volume 91.6 fl (81.6-98.3); Mean Platelet Volume 10.4 fl (7.4-10.4); Platelet Count 112 10x3/uL (150-450); RBC Distribution Width 14.7 % (11.5-14.5); Red Blood Cell (RBC) Count 3.32 10x6/uL (3.90-5.03)
[2022-08-31 14:21] LABS: ALT (SGPT) 17 U/L (8-55); AST (SGOT) 29 U/L (5-34); Albumin 2.7 g/dL (3.4-4.8); Alkaline Phosphatase 76 U/L (40-110); Anion Gap 12 mmol/L (10-20); BUN (Urea Nitrogen) 7 mg/dL (9.8-20.1); Bilirubin, Total 1.5 mg/dL (0.2-1.2); Calc. Creatinine Clearance 0 mL/min (70-130); Calcium 8.1 mg/dL (7.8-10.44); Carbon Dioxide 28 mmol/L (23-31); Chloride 101 mmol/L (98-107); Estimated GFR 88; Globulin 4.3 g/dL (2.4-3.5); Glucose 106 mg/dL (83-110); Potassium 3.2 mmol/L (3.5-5.1); Sodium 138 mmol/L (136-145)
== END 2022-08-31 12:05 | disposition home or self-care (01) ==
LOC: LABBT 12:04
PROVIDERS: ATTEND Surgery
DX: Z01.812 Encounter for preprocedural laboratory examination (principal); K95.09 Other complications of gastric band procedure
CPT/HCPCS: 80053; 85025

== ENCOUNTER 2022-09-03 05:34 | Observation (INO) | payer MEDICARE ==
[2022-09-03] MEDS ORDERED: Bupivacaine/Epinephrine 0.25% 30 ML VIAL ONE (06:26)
[2022-09-03] MEDS ORDERED: SUGAMMADEX SODIUM 200 MG/2 ML VIAL ONE (06:41)
[2022-09-03] MEDS ORDERED: fentaNYL PF 100 MCG/2 ML SYRINGE ONE (06:41)
[2022-09-03] MEDS ORDERED: Famotidine/PF 20 mg/2ml Vial ONE (06:41)
[2022-09-03] MEDS ORDERED: Ondansetron PF 4 MG/2 ML Vial ONE ×2 (06:42→07:31)
[2022-09-03] MEDS ORDERED: Metoclopramide HCl 10 MG/2 ML VIAL ONE ×2 (06:42→07:31)
[2022-09-03] MEDS ORDERED: CEFAZOLIN 2 GM VIAL ONE (06:54)
[2022-09-03] MEDS ORDERED: Lidocaine 1% MPF 2 ML VIAL ONE (06:54)
[2022-09-03] MEDS ORDERED: Sodium Chloride 0.9% 100 ML ONE (06:55)
[2022-09-03] MEDS ORDERED: Phenylephrine 10 MG/ML VIAL ONE (07:10)
[2022-09-03] MEDS ORDERED: Rocuronium Bromide 10 MG/ML (10ML VIAL) ONE (07:31)
[2022-09-03] MEDS ORDERED: Lidocaine 1% PF 5 ML VIAL ONE (07:31)
[2022-09-03] MEDS ORDERED: Dexamethasone 20 MG/5 ML VIAL ONE (07:31)
[2022-09-03] MEDS ORDERED: Ipratropium/Albuterol 3 ML NEB NEB PRN (08:43)
[2022-09-03] MEDS ORDERED: diphenhydrAMINE 50 MG/ML VIAL IVP PRN (08:43)
[2022-09-03] MEDS ORDERED: Promethazine HCl 25 MG/ML VIAL IM PRN ×2 (08:43→09:04)
[2022-09-03] MEDS ORDERED: Morphine 2 MG/ML VIAL SLOW IVP PRN (08:43)
[2022-09-03] MEDS ORDERED: Dextrose 5% in Water 1,000 ML IV PRN (08:43)
[2022-09-03] MEDS ORDERED: Morphine 4 MG/ML VIAL SLOW IVP PRN (08:43)
[2022-09-03] MEDS ORDERED: Ondansetron PF 4 MG/2 ML Vial IVP PRN (08:43)
[2022-09-03] MEDS ORDERED: Dextrose 50% Abboject 50 ML SYRINGE SLOW IVP PRN (08:43)
[2022-09-03] MEDS ORDERED: hydrALAZINE 20 MG/ML VIAL SLOW IVP PRN (08:43)
[2022-09-03] MEDS ORDERED: Ketorolac Tromethamine 30 MG/ML VIAL IVP PRN (09:04)
[2022-09-03] MEDS ORDERED: Ondansetron HCl/PF 4 MG/2 ML Vial IVP PRN (09:04)
[2022-09-03] MEDS ORDERED: Promethazine HCl 25 MG/ML VIAL ONE (09:09)
[2022-09-03] MEDS ORDERED: Fentanyl 100 MCG/2 ML VIAL ONE ×2 (09:10→09:28)
[2022-09-03] MEDS: Pantoprazole 40 MG VIAL IVP SCH (10:42)
[2022-09-03] MEDS: 1/2 NS w/KCL 20 mEq 1,000 ML IV SCH ×2 (10:42→20:30)
[2022-09-03 10:46] VITALS: BMI 32.5
[2022-09-03] MEDS: Hydrocodone-Acetamin 15 ML UDCUP PO PRN ×3 (11:03→20:25)
[2022-09-04] MEDS: Hydrocodone-Acetamin 15 ML UDCUP PO PRN ×3 (00:40→08:43)
[2022-09-04] MEDS: 1/2 NS w/KCL 20 mEq 1,000 ML IV SCH ×2 (04:56→12:40)
[2022-09-04 07:06] LABS: #Lymphocytes 0.2 thou/uL (1.20-3.40); #Monocytes 0.3 thou/uL (0.11-0.59); #Neutrophils 2.7 thou/uL (1.40-6.50); %Eosinophils 0.1 % (0.0-10.0); %Lymphocytes 7.2 % (21.0-51.0); %Monocytes 9.4 % (0.0-10.0); %Neutrophils 83.3 % (42.0-75.0); Mean Corpuscular HGB CONC 33.7 g/dL (32.0-36.0); Mean Corpuscular Hemoglobin 31.4 pg (27.0-31.0); Mean Corpuscular Volume 93.2 fl (78.0-98.0); Mean Platelet Volume 8.7 fL (7.4-10.4); Platelet Count 68 10x3/uL (130-400); RBC Distribution Width 14.1 % (11.5-14.5); Red Blood Cell (RBC) Count 2.88 mill/uL (4.20-5.40); White Blood Cell (WBC) Count 3.2 10x3/uL (4.8-10.8)
[2022-09-04 07:18] LABS: Anion Gap 11 mmol/L (10-20); BUN (Urea Nitrogen) 10 mg/dL (9.8-20.1); Calc. Creatinine Clearance 99 mL/min (70-130); Calcium 7.5 mg/dL (7.8-10.44); Carbon Dioxide 23 mmol/L (23-31); Chloride 100 mmol/L (98-107); Estimated GFR 88; Glucose 120 mg/dL (83-110); Potassium 4.5 mmol/L (3.5-5.1); Sodium 129 mmol/L (136-145)
[2022-09-04] MEDS: Pantoprazole 40 MG VIAL IVP SCH (08:42)
[2022-09-04 08:48] VITALS: BP 117/75; TEMP 97.6
== END 2022-09-04 12:20 | disposition home or self-care (01) ==
LOC: SDC 05:34 → SURG A 10:01
PROVIDERS: ADMIT Surgery; ATTEND Surgery
PROC: 0DP64CZ Removal of Extraluminal Device from Stomach, Percutaneous Endoscopic Approach (ICD-10-PCS; principal; 2022-09-03)
DX: K95.09 Other complications of gastric band procedure (principal); K66.0 Peritoneal adhesions (postprocedural) (postinfection); R13.10 Dysphagia, unspecified; R10.13 Epigastric pain; M79.7 Fibromyalgia; I11.9 Hypertensive heart disease without heart failure; E89.0 Postprocedural hypothyroidism; Z85.3 Personal history of malignant neoplasm of breast; Z87.891 Personal history of nicotine dependence; Z79.82 Long term (current) use of aspirin; Z79.890 Hormone replacement therapy; Z79.899 Other long term (current) drug therapy; Z88.1 Allergy status to other antibiotic agents; Z88.6 Allergy status to analgesic agent; Z98.84 Bariatric surgery status; Y73.3 Surgical instruments, materials and gastroenterology and urology devices (including sutures) associated with adverse incidents
CPT/HCPCS: 43774; 80048; 85025; 94760; 96374; G0378 ×2; 36415; C9113; J1100; J2370; J2405; J2550; J2765; J3010; J3480; J3490; S0028

== ENCOUNTER 2022-11-13 03:03 | Observation (INO) | payer MEDICARE ==
[2022-11-13 04:26] LABS: Bacteria/HPF 4+ HPF (None Seen); Bilirubin Negative (Negative); Blood, Urine Trace (Negative); Clarity Turbid (Clear); Glucose, Urine (Dipstick) Normal (Negative); Ketone, Urine Negative (Negative); Leukocyte 25 Leu/uL (Negative); Nitrite Negative (Negative); Protein, Urine (Dipstick) 20 mg/dL (Neg-Trace); Specific Gravity, Urine 1.025 (1.002-1.036); Squamous Epithelial Greater than 50 HPF (0-3); Urobilinogen 3 mg/dL (Less than 2)
[2022-11-13 04:33] LABS: #Lymphocytes 0.4 thou/uL (1.20-3.40); #Monocytes 0.2 thou/uL (0.11-0.59); #Neutrophils 3.1 thou/uL (1.40-6.50); %Basophils 0.2 % (0.0-1.0); %Eosinophils 0.8 % (0.0-10.0); %Lymphocytes 10.9 % (21.0-51.0); %Monocytes 6.2 % (0.0-10.0); %Neutrophils 81.9 % (42.0-75.0); Hemoglobin 11.1 g/dL (12.0-16.0); Mean Corpuscular HGB CONC 32.7 g/dL (32.0-36.0); Mean Corpuscular Hemoglobin 31.3 pg (27.0-31.0); Mean Corpuscular Volume 95.8 fl (78.0-98.0); Mean Platelet Volume 9.1 fL (7.4-10.4); Platelet Count 78 10x3/uL (130-400); RBC Distribution Width 15.6 % (11.5-14.5); Red Blood Cell (RBC) Count 3.56 mill/uL (4.20-5.40); White Blood Cell (WBC) Count 3.8 10x3/uL (4.8-10.8)
[2022-11-13 04:35] LABS: ALT (SGPT) 14 U/L (8-55); AST (SGOT) 32 U/L (5-34); Albumin 3.1 g/dL (3.4-4.8); Alkaline Phosphatase 110 U/L (40-110); Anion Gap 15 mmol/L (10-20); BUN (Urea Nitrogen) 10 mg/dL (9.8-20.1); Bilirubin, Total 2.8 mg/dL (0.2-1.2); Calc. Creatinine Clearance 0 mL/min (70-130); Calcium 8.8 mg/dL (7.8-10.44); Carbon Dioxide 26 mmol/L (23-31); Chloride 99 mmol/L (98-107); Estimated GFR 80; Globulin 5.3 g/dL (2.4-3.5); Glucose 129 mg/dL (83-110); Lipase 15 U/L (8-78); Magnesium 1.4 mg/dL (1.6-2.6); Potassium 3.5 mmol/L (3.5-5.1); Protein, Total 8.4 g/dL (5.8-8.1); Sodium 136 mmol/L (136-145)
[2022-11-13 04:38] LABS: INR-International Normal Ratio 1.6; Prothrombin Time 20.1 sec (12.0-14.7)
[2022-11-13 04:39] LABS: PTT 33.1 sec (22.9-36.1)
[2022-11-13 04:56] LABS: CKMB 1.4 ng/mL (0-6.6)
[2022-11-13] MEDS ORDERED: VANCOMYCIN 2 GRAM/500 ML BAG 2 GM in Premix Bag 1 BAG IVPB SCH (05:15)
[2022-11-13] MEDS ORDERED: cefTRIAXone (ROCEPHIN) 1 GM VIAL ONE (05:32)
[2022-11-13] MEDS ORDERED: Ondansetron PF 4 MG/2 ML Vial IVP PRN ×2 (06:30→10:21)
[2022-11-13] MEDS ORDERED: Acetaminophen 325 MG TAB PO PRN ×2 (06:30→10:21)
[2022-11-13] MEDS ORDERED: Ondansetron ODT 4 MG TAB SL PRN (06:30)
[2022-11-13 07:07] LABS: Troponin I 0.166 ng/mL (< 0.028)
[2022-11-13] MEDS ORDERED: Morphine 4 MG/ML VIAL ONE (07:25)
[2022-11-13 07:55] LABS: Lactic Acid 2.7 mmol/L (0.5-2.2)
[2022-11-13] MEDS ORDERED: Cefepime 2 GM in Sodium Chloride 0.9% 100 ML IVPB SCH (09:00)
[2022-11-13] MEDS ORDERED: Aspirin 325 MG TAB PO SCH (09:00)
[2022-11-13 09:06] VITALS: BMI 32.9
[2022-11-13] MEDS: Sodium Chloride 0.9% 1,000 ML IV SCH ×2 (09:23→11:16)
[2022-11-13] MEDS ORDERED: Iopamidol 370 76% 100 ML VIAL ONE (10:00)
[2022-11-13] MEDS ORDERED: VANCOMYCIN IVPB PRN (10:20)
[2022-11-13] MEDS ORDERED: Ondansetron ODT 4 MG TAB PO PRN (10:21)
[2022-11-13] MEDS ORDERED: Nitroglycerin 0.4 MG TAB (25 Tab Bottle) SL PRN (10:21)
[2022-11-13] MEDS ORDERED: Electrolyte Replacement Protocol 1 EACH FS SCH (10:30)
[2022-11-13] MEDS ORDERED: Electrolyte Replacement Protocol FS PRN (11:00)
[2022-11-13] MEDS ORDERED: Potassium Chloride 20 MEQ TAB PO SCH (11:00)
[2022-11-13 11:12] LABS: Troponin I 0.578 ng/mL (< 0.028)
[2022-11-13] MEDS: oxyCODONE 5 MG TAB PO PRN ×3 (11:15→23:06)
[2022-11-13] MEDS: Cefepime 2 GM in Sodium Chloride 0.9% 100 ML IVPB SCH ×2 (11:16→23:06)
[2022-11-13] MEDS ORDERED: Magnesium Sulfate In Water 4 GM in Premix Bag 1 BAG IVPB SCH (11:30)
[2022-11-13] MEDS ORDERED: Metoprolol Tartrate 50 MG TAB PO SCH (14:00)
[2022-11-13] MEDS: Vancomycin 1 GM in Premix Bag 1 BAG IVPB SCH (17:35)
[2022-11-13 17:36] LABS: Potassium 3.8 mmol/L (3.5-5.1)
[2022-11-13 20:38] LABS: Lactic Acid 2.1 mmol/L (0.5-2.2)
[2022-11-13] MEDS ORDERED: Ondansetron PF 4 MG/2 ML Vial IVP SCH (20:45)
[2022-11-13] MEDS: Magnesium Oxide 250 MG TAB PO SCH (20:59)
[2022-11-14] MEDS ORDERED: oxyCODONE 5 MG TAB PO PRN (00:43)
[2022-11-14 01:47] LABS: #Eosinphils 0.1 thou/uL (0.0-0.7); #Lymphocytes 0.4 thou/uL (1.20-3.40); #Monocytes 0.4 thou/uL (0.11-0.59); #Neutrophils 2.1 thou/uL (1.40-6.50); %Eosinophils 2.6 % (0.0-10.0); %Lymphocytes 14.2 % (21.0-51.0); %Monocytes 12.7 % (0.0-10.0); %Neutrophils 70.5 % (42.0-75.0); Hemoglobin 8.6 g/dL (12.0-16.0); Mean Corpuscular HGB CONC 31.2 g/dL (32.0-36.0); Mean Corpuscular Hemoglobin 30.2 pg (27.0-31.0); Mean Corpuscular Volume 96.5 fl (78.0-98.0); Mean Platelet Volume 8.6 fL (7.4-10.4); Platelet Count 59 10x3/uL (130-400); RBC Distribution Width 15.4 % (11.5-14.5); Red Blood Cell (RBC) Count 2.86 mill/uL (4.20-5.40)
[2022-11-14 02:05] LABS: Troponin I 0.594 ng/mL (< 0.028)
[2022-11-14 05:22] LABS: #Eosinphils 0.1 thou/uL (0.0-0.7); #Lymphocytes 0.5 thou/uL (1.20-3.40); #Monocytes 0.2 thou/uL (0.11-0.59); #Neutrophils 1.3 thou/uL (1.40-6.50); %Eosinophils 2.9 % (0.0-10.0); %Lymphocytes 22.8 % (21.0-51.0); %Monocytes 10.7 % (0.0-10.0); %Neutrophils 63.7 % (42.0-75.0); Hemoglobin 8.2 g/dL (12.0-16.0); Mean Corpuscular HGB CONC 33.2 g/dL (32.0-36.0); Mean Corpuscular Hemoglobin 32.1 pg (27.0-31.0); Mean Corpuscular Volume 96.7 fl (78.0-98.0); Mean Platelet Volume 8.6 fL (7.4-10.4); Platelet Count 55 10x3/uL (130-400); RBC Distribution Width 15.6 % (11.5-14.5); Red Blood Cell (RBC) Count 2.55 mill/uL (4.20-5.40); White Blood Cell (WBC) Count 2.1 10x3/uL (4.8-10.8)
[2022-11-14] MEDS: Vancomycin 1 GM in Premix Bag 1 BAG IVPB SCH (05:39)
[2022-11-14 05:42] LABS: ALT (SGPT) 10 U/L (8-55); AST (SGOT) 18 U/L (5-34); Albumin 2.2 g/dL (3.4-4.8); Alkaline Phosphatase 76 U/L (40-110); Anion Gap 8 mmol/L (10-20); BUN (Urea Nitrogen) 8 mg/dL (9.8-20.1); Bilirubin, Total 1.9 mg/dL (0.2-1.2); Calc. Creatinine Clearance 113 mL/min (70-130); Carbon Dioxide 28 mmol/L (23-31); Cardiac Risk 3.3 (Less than 4.5); Chloride 105 mmol/L (98-107); Cholesterol 85 mg/dl (< 200 Desired); Estimated GFR 92; Globulin 3.6 g/dL (2.4-3.5); Glucose 103 mg/dL (83-110); HDL Cholesterol 26 mg/dL (>60 Neg Risk); LDL Cholesterol, Calculated 49 mg/dL; Potassium 3.7 mmol/L (3.5-5.1); Protein, Total 5.8 g/dL (5.8-8.1); Sodium 137 mmol/L (136-145); Triglycerides 48 mg/dL (Less than 150)
[2022-11-14] MEDS: HYDROcodone/Acetaminophen 5/325 mg Tablet PO PRN ×2 (05:59→16:41)
[2022-11-14] MEDS ORDERED: Levothyroxine Sodium 25 MCG TAB PO SCH (06:00)
[2022-11-14] MEDS ORDERED: Magnesium 2 GM/50 ML(in water) 2 GM in Premix Bag 1 BAG IVPB SCH (08:00)
[2022-11-14] MEDS ORDERED: Ezetimibe 10 MG TAB PO SCH (09:00)
[2022-11-14] MEDS ORDERED: Aspirin 81 mg Enteric Coated Tablet PO SCH (09:00)
[2022-11-14] MEDS: Magnesium Oxide 250 MG TAB PO SCH (09:27)
[2022-11-14] MEDS: Cefepime 2 GM in Sodium Chloride 0.9% 100 ML IVPB SCH (10:40)
[2022-11-14 13:19] VITALS: BP 128/65; TEMP 96.7
== END 2022-11-14 17:32 | disposition home or self-care (01) ==
LOC: SUATTDRO 03:03 → ERS 03:03 → 2NO 08:25
PROVIDERS: ADMIT Internal Medicine; ATTEND Internal Medicine
DX: A41.9 Sepsis, unspecified organism (principal); R07.2 Precordial pain; R10.30 Lower abdominal pain, unspecified; I13.10 Hypertensive heart and chronic kidney disease without heart failure, with stage 1 through stage 4 chronic kidney disease, or unspecified chronic kidney disease; N18.2 Chronic kidney disease, stage 2 (mild); K57.81 Diverticulitis of intestine, part unspecified, with perforation and abscess with bleeding; K74.60 Unspecified cirrhosis of liver; K76.6 Portal hypertension; G89.4 Chronic pain syndrome; R77.8 Other specified abnormalities of plasma proteins; D61.818 Other pancytopenia; M79.7 Fibromyalgia; I25.10 Atherosclerotic heart disease of native coronary artery without angina pectoris; I25.84 Coronary atherosclerosis due to calcified coronary lesion; K21.9 Gastro-esophageal reflux disease without esophagitis; E89.0 Postprocedural hypothyroidism; K80.20 Calculus of gallbladder without cholecystitis without obstruction; I08.3 Combined rheumatic disorders of mitral, aortic and tricuspid valves; E66.9 Obesity, unspecified; Z68.33 Body mass index [BMI] 33.0-33.9, adult; Z87.891 Personal history of nicotine dependence; Z79.82 Long term (current) use of aspirin; Z79.890 Hormone replacement therapy; Z79.899 Other long term (current) drug therapy; Z88.1 Allergy status to other antibiotic agents; Z88.6 Allergy status to analgesic agent; Z95.5 Presence of coronary angioplasty implant and graft
CPT/HCPCS: 71045; 71275; 74176; 80053; 80061; 82140 ×2; 82553; 83605 ×2; 83690; 83735 ×2; 83880 ×2; 84132; 84484 ×3; 85025; 85610; 85730; 87040; 87086; 93005; 93306; 94760; 96367; 96375; 96376 ×2; G0378 ×3; J3370 ×3; J3475; 36415; 81003; 81015; 84443; J0692; J0696; J2270; J2405; J3490; J7050; Q0162; Q9967

== ENCOUNTER 2023-05-09 12:54 | Outpatient (CLI) | payer MEDICARE ==
[2023-05-09 14:27] LABS: Bilirubin 1+ (Negative); Blood, Urine 50 (Negative); Glucose, Urine (Dipstick) Normal (Negative); Ketone, Urine 5 mg/dL (Negative); Leukocyte 25 (Negative); Nitrite Negative (Negative); Protein, Urine (Dipstick) 15 mg/dl (Neg-Trace); Specific Gravity, Urine 1.025 (1.005-1.030)
[2023-05-09 14:41] LABS: Clarity Hazy (Clear)
[2023-05-09 14:42] LABS: INR-International Normal Ratio 1.3; Prothrombin Time 13.4 sec (9.5-12.1)
[2023-05-09 14:44] LABS: Anion Gap 14 mmol/L (10-20); BUN (Urea Nitrogen) 9 mg/dL (9.8-20.1); Bacteria/HPF 1+ HPF (None Seen); Calc. Creatinine Clearance 0 mL/min (70-130); Calcium 8.3 mg/dL (7.8-10.44); Calcium Oxalate Crystals 1+ HPF (None Seen); Carbon Dioxide 27 mmol/L (23-31); Chloride 100 mmol/L (98-107); Estimated GFR 82; Glucose 99 mg/dL (83-110); Potassium 3.5 mmol/L (3.5-5.1); Sodium 137 mmol/L (136-145)
[2023-05-09 14:46] LABS: ALT (SGPT) 18 U/L (8-55); AST (SGOT) 32 U/L (5-34); Albumin 3.2 g/dL (3.4-4.8); Alkaline Phosphatase 103 U/L (40-110); Bilirubin, Direct 0.7 mg/dL (0.1-0.3); Bilirubin, Total 1.4 mg/dL (0.2-1.2); Protein, Total 7.5 g/dL (5.8-8.1)
[2023-05-09 14:49] LABS: Hematocrit 35.5 % (34.9-44.5); Mean Corpuscular HGB CONC 33.8 g/dL (32.0-36.0); Mean Corpuscular Hemoglobin 31.7 pg (27.0-33.0); Mean Corpuscular Volume 93.7 fl (81.6-98.3); Mean Platelet Volume 9.7 fl (7.4-10.4); Platelet Count 91 10x3/uL (150-450); RBC Distribution Width 14.5 % (11.5-14.5); Red Blood Cell (RBC) Count 3.79 10x6/uL (3.90-5.03); White Blood Cell (WBC) Count 5.1 10x3/uL (3.5-10.5)
== END 2023-05-09 12:55 | disposition home or self-care (01) ==
LOC: LABBT 12:54
PROVIDERS: ATTEND Urology
DX: Z01.818 Encounter for other preprocedural examination (principal); N20.0 Calculus of kidney; N39.0 Urinary tract infection, site not specified; K75.81 Nonalcoholic steatohepatitis (NASH); E66.01 Morbid (severe) obesity due to excess calories; R00.0 Tachycardia, unspecified
CPT/HCPCS: 80048; 80076; 81001; 85027; 85610; 85730; 87086; 93005; 93010

== ENCOUNTER 2023-05-17 06:49 | Day surgery (SDC) | payer MEDICARE ==
[2023-05-09 13:34] VITALS: BMI 30.7
[2023-05-17] MEDS ORDERED: fentaNYL PF 100 MCG/2 ML SYRINGE ONE (11:06)
[2023-05-17] MEDS ORDERED: SUGAMMADEX SODIUM 200 MG/2 ML VIAL ONE (11:07)
[2023-05-17] MEDS ORDERED: NEOSTIGMINE 3 MG/3 ML SYR 3 MG/3 ML SYRINGE ONE (11:42)
[2023-05-17] MEDS ORDERED: PHENYLEPHRINE-NS 100 MCG/ML 10 ML SYRINGE ONE (11:42)
[2023-05-17] MEDS ORDERED: Lidocaine 1% PF 5 ML VIAL ONE (11:42)
[2023-05-17] MEDS ORDERED: Rocuronium Bromide 10 MG/ML (10ML VIAL) ONE (11:42)
[2023-05-17] MEDS ORDERED: Glycopyrrolate 0.2 MG/ML 5 ML SYRINGE ONE (11:42)
[2023-05-17] MEDS ORDERED: PROPOFOL 200 MG/20 ML VIAL ONE (11:42)
[2023-05-17] MEDS ORDERED: LevoFLOXacin 500 mg/D5W 100 ML BAG ONE (11:47)
[2023-05-17] MEDS ORDERED: Fentanyl 250 MCG/5 ML VIAL ONE (13:15)
[2023-05-17] MEDS ORDERED: Phenazopyridine HCl 100 MG TAB ONE (13:35)
[2023-05-17] MEDS ORDERED: Oxybutynin 5 MG TAB ONE (13:35)
[2023-05-17] MEDS ORDERED: HYDROcodone/Acetaminophen 5/325 mg Tablet ONE (15:33)
== END 2023-05-17 15:53 | disposition home or self-care (01) ==
LOC: SDC 06:49
PROVIDERS: ATTEND Urology
PROC: 0TF38ZZ Fragmentation in Right Kidney Pelvis, Via Natural or Artificial Opening Endoscopic (ICD-10-PCS; principal; 2023-05-17)
PROC: 0T788DZ Dilation of Bilateral Ureters with Intraluminal Device, Via Natural or Artificial Opening Endoscopic (ICD-10-PCS; 2023-05-17)
PROC: 0T778ZZ Dilation of Left Ureter, Via Natural or Artificial Opening Endoscopic (ICD-10-PCS; 2023-05-17)
DX: N20.0 Calculus of kidney (principal); N13.5 Crossing vessel and stricture of ureter without hydronephrosis; Z88.1 Allergy status to other antibiotic agents; Z88.8 Allergy status to other drugs, medicaments and biological substances
CPT/HCPCS: 52341; 52356; 82365; C1713; C1747; C1769; C2617; 88300; J1956; J2704; J3010

== ENCOUNTER 2023-08-13 10:00 | Outpatient (CLI) | payer MEDICARE | END 2023-08-13 10:01 | disposition home or self-care (01) | LOC: BICULT 10:00 | PROVIDERS: ATTEND Urology | DX: N20.0 Calculus of kidney (principal) | CPT/HCPCS: 76770 ==